=== PATIENT | female | born 2000 | race Hispanic/Latino ===

== ENCOUNTER 2019-05-17 14:28 | Emergency (ER) | payer OTHER ==
[~2019-05-17] VITALS: Ht 170.2 cm; Wt 95.5 kg
[2019-05-17 15:20] LABS: BASO % 0.5 % (0.0-1.0); EOS # 0.1 10^3/uL (0.0-0.50); EOS % 1.6 % (0.0-3.0); HEMATOCRIT 37.4 % (36.0-47.0); HEMOGLOBIN 12.2 g/dl (12.0-15.5); LYMPH # 1.9 10^3/uL (1.5-6.5); LYMPH % 24.7 % (24.0-44.0); MEAN CORPUSCULAR HEMOGLOBIN 29.5 pg (27.0-33.0); MEAN CORPUSCULAR HGB CONC 32.6 g/dl (32.0-36.5); MEAN CORPUSCULAR VOLUME 90.6 fl (80.0-96.0); MONO # 0.6 10^3/uL (0.0-0.8); MONO % 8.1 % (0.0-5.0); NEUTROPHILS # 4.9 10^3/uL (1.8-7.7); PLATELET COUNT, AUTOMATED 279 10^3/uL (150-450); RED BLOOD COUNT 4.13 10^6/uL (4.00-5.40); WHITE BLOOD COUNT 7.5 10^3/uL (4.0-10.0)
[2019-05-17 16:15] LABS: BLOOD UREA NITROGEN 13 MG/DL (7-18); CARBON DIOXIDE LEVEL 27 MEQ/L (21-32); CHLORIDE LEVEL 106 MEQ/L (98-107); CREATININE FOR GFR 0.69 MG/DL (0.55-1.30); GLUCOSE, FASTING 85 MG/DL (70-100); HCG, SERUM QUANTITATIVE 7000 MIU/ML; POTASSIUM SERUM 4.3 MEQ/L (3.5-5.1); SODIUM LEVEL 138 MEQ/L (136-145)
[2019-05-17 18:00] VITALS: BP 120/72
--- NOTE | 2019-05-17 18:21 | REPVR ---
EXAM: US First Trimester, Transabdominal and US , Transvaginal EXAM DATE/TIME: 05/17/2019 5:01 PM CLINICAL HISTORY: 18 years old, female; complicated by abdominal or pelvic pain; Left lower quadrant; First trimester; Gestational age or lmp: 6w6d; ; Additional info: Llq/pelvic pain; 6 weeks TECHNIQUE: Imaging protocol: Real-time transabdominal obstetrical ultrasound of the maternal pelvis and a first trimester , less than 14 weeks 0 days, with image documentation. Transvaginal imaging was used for better evaluation of the fetus and adnexa. COMPARISON: No relevant prior studies available. FINDINGS: GESTATION: Gestation: A single intrauterine gestational sac is identified with yolk sac. No pole is identified at this time. The yolk sac measures 0.25 cm in diameter. The mean gestational sac diameter is 1.12 cm. Heart rate: N/A. Placenta: No subchorionic bleed visualized. Amniotic fluid: Amniotic fluid subjectively normal for gestational age. BIOMETRY: Estimated gestational age: The estimated gestational age is 5 weeks 3 days. Estimated due date: The estimated date of delivery of 01/04/2020. MATERNAL: Uterus: The uterus measures 9.6 x 4.0 x 4.8 cm. The uterus is anteverted. No uterine mass visualized. Cervix: Unremarkable, as visualized. Right adnexa: The right ovary measures 3.7 x 2.4 x 1.9 cm. Within the right ovary, there is a complex/hemorrhagic cyst versus a thick-walled corpus luteum cyst. This measures 2.8 x 2.4 x 1.9 cm. There is preservation of blood flow within the right ovary. Left adnexa: The left ovary measures 2.8 x 2.7 x 1.5 cm. Small follicles are visualized within the left ovary. There is preservation of blood flow within the left ovary. Intraperitoneal: No intraperitoneal free fluid. IMPRESSION: 1. A single intrauterine gestational sac is identified with yolk sac. No pole is identified at this time. 2. The estimated gestational age is 5 weeks 3 days. 3. Within the right ovary, there is a complex/hemorrhagic cyst versus a thick-walled corpus luteum cyst. This measures 2.8 x 2.4 x 1.9 cm. 4. Follow-up ultrasonography is recommended. Electronically signed by: Lars Kim On 05/17/2019 18:21:30 PM
== END 2019-05-17 18:01 | disposition home or self-care (01) ==
LOC: M ED 14:28
DX: O99.89 Other specified diseases and conditions complicating pregnancy, childbirth and the puerperium (principal); R10.2 Pelvic and perineal pain; Z3A.00 Weeks of gestation of pregnancy not specified; R93.41 Abnormal radiologic findings on diagnostic imaging of renal pelvis, ureter, or bladder

== ENCOUNTER 2019-12-26 14:21 | Outpatient (CLI) | payer OTHER ==
[~2019-12-26] VITALS: Ht 170.2 cm; Wt 109.9 kg
[2019-12-26 14:40] VITALS: BP 121/76
[2019-12-26] MEDS ORDERED: PRENTAB9 PO (14:41)
[2019-12-26] MEDS ORDERED: MAPA500T2 PO (14:41)
== END 2019-12-26 15:21 | disposition home or self-care (01) ==
LOC: M LDO 14:21
PROVIDERS: ATTEND Advanced Practice Midwife
DX: O47.1 False labor at or after 37 completed weeks of gestation (principal); Z3A.37 37 weeks gestation of pregnancy; O99.213 Obesity complicating pregnancy, third trimester; E66.9 Obesity, unspecified; O26.893 Other specified pregnancy related conditions, third trimester; R51 Headache; Z79.899 Other long term (current) drug therapy
CPT/HCPCS: 59025; G0378; G0463

== ENCOUNTER 2020-01-20 07:30 | Inpatient (IN) | payer OTHER ==
[~2020-01-20] VITALS: Ht 170.2 cm; Wt 110.9 kg
[2020-01-20] VITALS (11 sets, daily range): BP systolic 100–135; BP diastolic 55–81
[2020-01-20] MEDS: miSOPROStol 50 MCG 1/2 TAB (S0191) PO SCH ×2 (03:12→19:14)
[~2020-01-20 07:30] MED LIST: MAPA500T2 PO; PRENTAB9 PO
[2020-01-20 08:30] LABS: HEMATOCRIT 33.7 % (36.0-47.0); HEMOGLOBIN 11.1 g/dl (12.0-15.5); MEAN CORPUSCULAR HEMOGLOBIN 29.2 pg (27.0-33.0); MEAN CORPUSCULAR HGB CONC 32.9 g/dl (32.0-36.5); MEAN CORPUSCULAR VOLUME 88.7 fl (80.0-96.0); PLATELET COUNT, AUTOMATED 237 10^3/uL (150-450); WHITE BLOOD COUNT 6.8 10^3/uL (4.0-10.0)
[2020-01-20] MEDS: LR 1,000 ML IV SCH ×2 (10:30→18:30)
[2020-01-20] MEDS ORDERED: miSOPROStol 50 MCG 1/2 TAB (S0191) SL ONE (10:30)
[2020-01-20] MEDS ORDERED: LACTATED RINGER'S 1000 ML IV ONE (10:30)
--- NOTE | 2020-01-20 10:54 | HPE ---
DATE OF ADMISSION: 01/20/2020 This lady is a 19-year-old 1, para 0, last menstrual period (LMP) 03/30/2019, expected date of confinement (EDC) 01/13/2020, at 41 weeks of gestation for induction of labor. Risk factors is she is late post term, she has headaches and has a body mass index (BMI) of 32.9. Labs: O+. HIV negative. Hepatitis negative. RPR negative. Rubella immune. Varicella immune. Urine negative. Gonorrhea and chlamydia negative. 1-hour early glucose was 76. 1-hour GTT at 28 weeks was 77. GBS is negative. Blood pressure is 118/69, respirations are 18, pulse 82, temperature 98.2. Urine is 1.020, pH 5, +1 leukocyte esterase, trace of protein. Hemoglobin 11.1, hematocrit 33.7 and platelets are 237. On examination, no distress. Symphysis fundus height is 40, vertex, occiput anterior (OA), -3 station, 50% effaced, posterior and thick. Four quadrant bowel sounds are noted. She has a category one strip. Normocephalic, atraumatic. Neck dull range of motion. Pupils equal and reactive to light. Chest is clear bilaterally at bases. No wheezes or rhonchi. No CVA tenderness. Abdomen is soft. As mentioned, four quadrant bowel sounds. Scar is noted. She has no rashes, lesions or pruritus. No arthralgia or myalgia. She does have tattoos. No joint pains. No complaint of cough, wheeze, shortness of breath or dyspnea on exertion. No nausea, vomiting, diarrhea or constipation. No bruising. No bleeding. Neuro complete. No diabetic or cold issues. SU[employer] history unremarkable. Past history Unremarkable. No surgical history. Family history noncontributory. She does not smoke, drink abuse drugs. She is . No domestic violence. She has good support from her partner. We discussed the consent for vaginal delivery which is delivery of baby through the vagina with possible assistance of vacuum or forceps or devices if needed, for maternal or indications. Forceps or vacuum device that can assist with vaginal delivery when normal pushing efforts cannot achieve delivery on their own or when delivery is needed in an emergency for baby's well-being. Medications may be required to induce or augment labor in order achieve vaginal delivery. An episiotomy may be required to help the baby deliver vaginally. May also require repairs for lacerations or tears of the vagina or vulva caused by delivery. Emergencies can arise and require emergency section. Your provider will discuss them with you, there may be not time enough to sign a consent form. section is delivery through the abdomen. In some situations, may be safer to mom and baby than continuing labor and only performed when clinically indicated. Risk of vaginal delivery includes, but are not limited to bleeding, infection, injury to vagina or pelvic structures, injury to baby, damage to the uterus, reaction to anesthesia, uterine rupture, risk of hysterectomy for life-threatening bleeding situations and . Medications used to induce or augment may increase risk of delivery, possible or hysterectomy, or bleeding. Also risk of infection, uterine tachysystole or uterine rupture, or heart rate abnormalities. This may generate and require need for emergency section. Possibility of hemorrhage is elevated. Additional risks of use of forceps or vacuum may include increased risk of perineal or vaginal lacerations, risk of urinary or bowel incontinence, increased risk of injury to baby with bruising scratches, hematomas on the head or intracranial bleed. The patient verbalized understanding as did her . Our plan is to hydrate her, use misoprostol 50 mg sublingual, reevaluate in 4 hours, and epidural if needed. The patient says she has scoliosis. This will be discussed with anesthesia. All questions were answered. 40-minute discussion.
[2020-01-20] MEDS ORDERED: miSOPROStol 25 MCG 1/4 TAB (S0191) As Ordered ONE (14:40)
[2020-01-20] MEDS ORDERED: miSOPROStol 50 MCG 1/2 TAB (S0191) PO SCH (14:45)
[2020-01-20] MEDS ORDERED: miSOPROStol 25 MCG 1/4 TAB (S0191) PO ONE (14:45)
--- NOTE | 2020-01-20 19:21 | IPN ---
DATE: 01/20/2020 This lady is a 1, para 0 at 40 and 1 weeks of gestation, admitted for induction of labor. She originally had a Cytotec 50 mg sublingually, which gave her contractions about 6 to 8 minutes, moderate in intensity. They did peter out. She had another dose of 25 mg orally and on present examination, she is found to be anterior, 2 cm, 70% effaced and -3 station, which is an improvement from her previous one. We anticipate that within the next 4 hours we should be able to initiate a Rothman bulb and Pitocin on this lady. Presently, her blood pressure has not been reevaluated on the updated census, however, evaluating her monitor strip, she is afebrile, respirations are 18, pulse is 72 and temperature is 98.2. Her blood pressure is 120/70. Our plan of management is to give her another lot of 50 of misoprostol, after which anticipation of using a Rothman bulb catheter and Pitocin will be entertained. The patient expressed understanding of plan of care.
[2020-01-21] VITALS (55 sets, daily range): BP systolic 102–177; BP diastolic 56–101
[2020-01-21] MEDS: LR 1,000 ML IV SCH ×4 (02:30→18:30)
[2020-01-21] MEDS: miSOPROStol 50 MCG 1/2 TAB (S0191) PO SCH ×6 (03:12→23:30)
[2020-01-21] MEDS ORDERED: OXYTOCIN DRIP 30 UNITS in IV 1 EA IV SCH (08:00)
[2020-01-21] MEDS ORDERED: OXYTOCIN 30 UNITS IN 0.9% NaCl 500ML IV BAG (J2590) As Ordered ONE (08:04)
[2020-01-21] MEDS ORDERED: PROMETHAZINE INJ 25 MG/ML VIAL (J2550) IV ONE (08:15)
[2020-01-21] MEDS ORDERED: BUTORPHANOL 2 MG/ML INJ (J0595) IV ONE (08:15)
[2020-01-21] MEDS ORDERED: FENTANYL 2MCG/ML ROPIVACAINE 0.2% IN 0.9% NACL 100ML IVBAG As Ordered ONE ×2 (11:44→20:30)
[2020-01-21] MEDS ORDERED: EPIDURAL/PCA KEYS XX PRN (12:00)
[2020-01-21] MEDS ORDERED: EPIDURAL COMMENT XX SCH (12:00)
[2020-01-21] MEDS ORDERED: LACTATED RINGER'S 1000 ML IV PRN (12:00)
[2020-01-21] MEDS ORDERED: REFRIGERATOR IV KEYS XX PRN (12:00)
[2020-01-21] MEDS ORDERED: NALOXONE INJ 0.4 MG/1 ML VIAL (J2310) IV PRN (12:00)
[2020-01-21] MEDS ORDERED: ePHEDrine SULFATE 25 MG/5 ML(5MG/ML) SYRINGE IV PRN (12:00)
[2020-01-21] MEDS ORDERED: ONDANSETRON 4MG/2ML VIAL (J2405) IV PRN (12:00)
[2020-01-21] MEDS: FENTANYL/ROPIVACAINE/NACL BAG 100 ML EPIDURAL SCH ×2 (12:00→22:00)
[2020-01-21] MEDS ORDERED: diphenhydrAMINE 50MG/ML VIAL (J1200) IV PRN (12:00)
--- NOTE | 2020-01-21 12:53 | IPN ---
DATE: 01/21/2020 This lady is a 19-year-old 1, LMP 03/30/2019, EDC 01/13/2020, admitted 40 and 1 weeks of gestation for induction of labor. She had four lots of Cytotec. She presently is having contractions every 2-6 minutes, moderate intensity. No ruptured membranes or bleeding. Category one strip, afebrile and normal blood pressure and pulse. Pelvic examination: The cervix is anterior, 3 cm, almost stretches to 4, 90% effaced at -3 station. ARM was done draining clear liquid. Moderate intensity. Our plan of care is to augment with Pitocin if necessary, and the patient is requesting at the present time IV medication for pain as opposed to an epidural, which has been ordered. Safe to proceed.
[2020-01-22] VITALS (7 sets, daily range): BP systolic 120–162; BP diastolic 71–88
[2020-01-22 01:30] LABS: CORD GAS ABE A -8.6; CORD GAS ABE V -7.8; CORD GAS HCO3 A 20.8 MEQ/L; CORD GAS O2 SAT A 38.3 %; CORD GAS O2 SAT V 66.2 %; CORD GAS PCO2 A 59.2 mmHg; CORD GAS PCO2 V 37.6 mmHg; CORD GAS PH A 7.164 UNITS; CORD GAS PH V 7.297 UNITS; CORD GAS PO2 A 22.6 mmHg; CORD GAS PO2 V 30.4 mmHg; CORD GAS SBC A 16.3 MEQ/L; CORD GAS SBC V 17.6 MEQ/L; CORD GAS TCO2 A 22.6 MEQ/L; CORD GAS TCO2 V 19.1 MEQ/L
[2020-01-22] MEDS ORDERED: ANUSOL HC CREAM 30GM TOP PRN (02:00)
[2020-01-22] MEDS ORDERED: MOM 30ML SUSPENSION UDC PO PRN (02:00)
[2020-01-22] MEDS ORDERED: MEASLES,MUMPS,RUBELLA VACCINE INJ (MMR-II) (90707) SC SCH (02:00)
[2020-01-22] MEDS ORDERED: OXYTOCIN INJ 10 UNITS/ML VIAL (J2590) IV ONE (02:00)
[2020-01-22] MEDS ORDERED: RHOGAM 300 MCG (1500 IU) INJ (J2790) IM SCH (02:00)
[2020-01-22] MEDS ORDERED: OXYTOCIN DRIP 30 UNITS in IV 1 EA IV ONE (02:00)
[2020-01-22] MEDS ORDERED: DIBUCAINE 1% OINTMENT 30GM TOP PRN (02:00)
[2020-01-22] MEDS ORDERED: METHYLERGONOVINE MALEATE 0.2 MG TAB PO PRN (02:00)
[2020-01-22] MEDS ORDERED: DOCUSATE SODIUM 100 MG CAP PO PRN (02:00)
[2020-01-22] MEDS ORDERED: OXYTOCIN INJ 10 UNITS/ML VIAL (J2590) As Ordered ONE (02:12)
[2020-01-22] MEDS: ACETAMINOPHEN 500 MG TAB PO PRN (03:17)
--- NOTE | 2020-01-22 06:33 | DN ---
DATE OF DELIVERY: 01/22/2020 19-year-old 1, para 0 admitted in 41 weeks of gestation for induction of labor. After multiple doses of Cytotec eventually had some contractions, did an ARM draining clear liqua, had a long prodromal second stage, but eventually at full dilatation delivered over an intact perineum a live male weighing 6 pounds 9 ounces, 2970 grams, scores of eight and eight at 1 and 5 minutes respectively. Arterial pH 7.16, base excess -8.6, venous pH 7.29, base excess -7.8. The baby had terminal meconium at delivery. Placenta delivered spontaneously thereafter. Three-vessels in the cord. Membranes and tissues intact. There were multiple calcifications in the placenta. On evaluation she had a first-degree tear of the vaginal wall. No evidence of perineal trauma. The lateral, anterior and posterior wan were intact. The sphincter was tight. The vaginal tear was repaired with a #2-0 Vicryl on a J339. Uterus contracted well down under Pitocin. The patient and baby tolerating procedure well.
[2020-01-22] MEDS: PRENATAL VITAMINS CHEWABLE TABLET PO SCH (09:00)
[2020-01-22] MEDS: ACETAMINOPHEN TAB 650MG DOSE (2X325MG) PO PRN (12:46)
[2020-01-22] MEDS: NAPROXEN 250 MG TAB PO SCH ×2 (16:20→20:19)
[2020-01-23] MEDS: ACETAMINOPHEN TAB 650MG DOSE (2X325MG) PO PRN (01:07)
[2020-01-23 06:00] VITALS: BP_SYST 109; BP_SYST 123; BP_DIAS 63; BP_DIAS 74
[2020-01-23 07:44] LABS: HEMATOCRIT 30.9 % (36.0-47.0); MEAN CORPUSCULAR HEMOGLOBIN 29.2 pg (27.0-33.0); MEAN CORPUSCULAR HGB CONC 32.4 g/dl (32.0-36.5); MEAN CORPUSCULAR VOLUME 90.1 fl (80.0-96.0); PLATELET COUNT, AUTOMATED 202 10^3/uL (150-450); RED BLOOD COUNT 3.43 10^6/uL (4.00-5.40); WHITE BLOOD COUNT 9.9 10^3/uL (4.0-10.0)
[2020-01-23] MEDS: NAPROXEN 250 MG TAB PO SCH ×2 (09:00→21:11)
[2020-01-23] MEDS: PRENATAL VITAMINS CHEWABLE TABLET PO SCH (09:00)
--- NOTE | 2020-01-23 09:59 | IPNPDOC ---
Progress Note Date of Service: Jan 23, 2020 Day#: 1 Progress Note PPD 1 SUBJECT: Tab is a 19yo [id number] s/p uncomplicated at 41wk after undergoing IOL for LTG, having a 1mll and repair, doing well day # 1. She has been ambulating, voiding spontaneously without issue and tolerating regular diet. Breast and bottle feeding without issue. Reports lochia is like a normal period. Patient is ambulating well. No f/c/n/v/CP/SOB. OBJECTIVE: VITAL SIGNS: Within normal limits, afebrile. Alert and oriented times three. Abdomen: Fundus firm at U-2. Soft, NTTP. Extremities: no pain with palpation of calves, trace pedal edema ASSESSMENT: Tab is a 19yo [id number] s/p uncomplicated at 41wk after undergoing IOL for LTG, having a 1mll and repair, doing well day # 1. Vitals within normal limits, afebrile, hemodynamically stable with no evidence of infection. PLAN: 1. Routine PP care 2. Tylenol and Motrin for pain. 3. Encourage breast feeding and ambulation. 4. Regular diet 5. Baby may need to stay for bili light, so anticipate discharge tomorrow. If baby ok to discharge, mom can go home today, too. Dr. Zayda Kennedy MD VS, I&O, 24H, Fishbone Vital Signs/I&O Vital Signs Date Time Temp Pulse Resp B/P (MAP) Pulse Ox O2 Delivery O2 Flow Rate FiO2 01/23/20 06:00 97.5 76 16 109/74 (86) 98 Room Air Laboratory Data 24H LABS Laboratory Tests 2 01/23/20 07:29: Nucleated Red Blood Cells % (auto) 0.0 CBC/BMP Laboratory Tests 01/23/20 07:29 Zayda Kennedy MD Jan 23, 2020 09:59
--- NOTE | 2020-01-23 11:49 | IPN ---
DATE: 01/23/2020 This patient requested circumcision of her male after discussing the risks and benefits of circumcision, the medical and nonmedical indications, the penile block and aftercare. Expressed understanding of penile block, aftercare and bleeding, signed the consent form. All questions were answered. 20 minute discussion. We await the clearance by the bankruptcy processor.
[2020-01-23] MEDS ORDERED: DIBU10OI TOP (12:25)
[2020-01-23] MEDS ORDERED: DOCU100C16 PO (12:25)
[2020-01-23] MEDS ORDERED: PROC1CRE5 TOP (12:25)
[2020-01-23] MEDS: ACETAMINOPHEN 500 MG TAB PO PRN (17:24)
[2020-01-23 18:00] VITALS: BP 116/70
[2020-01-24 01:27] VITALS: BP 135/92
[2020-01-24] MEDS: ACETAMINOPHEN TAB 650MG DOSE (2X325MG) PO PRN (05:21)
[2020-01-24 06:00] VITALS: BP 142/87
--- NOTE | 2020-01-24 07:46 | DS.PDOC ---
Discharge Summary General Date of Admission Jan 20, 2020 at 07:30 Date of Discharge 01/24/2020 Discharge Summary PROCEDURES PERFORMED DURING STAY: None. ADMITTING DIAGNOSES: 1. Postdates DISCHARGE DIAGNOSES: 1. Postdates COMPLICATIONS/CHIEF COMPLAINT: Postdates for IOL. HISTORY OF PRESENT ILLNESS: see H&P HOSPITAL COURSE: Patient was admitted for induction of labor and had an uncomplicated . Bleeding similar to menses. Tolerating diet. Passing flatus. Able to ambulate. Urinating without difficulty. DISCHARGE MEDICATIONS: Please see below. ALLERGIES: Please see below. PHYSICAL EXAMINATION ON DISCHARGE: VITAL SIGNS: Please see below. GENERAL: No acute distress HEENT: Mucous membranes moist BREAST: Nontender, no erythema CARDIOVASCULAR EXAMINATION: Regular rate and rythm RESPIRATORY EXAMINATION: Bilaterally clear ABDOMINAL EXAMINATION: Soft, appropriate tenderness, nondistended, fundus -2 EXTREMITIES: no edema, nontender LABORATORY DATA: Please see below. IMAGING: none PROGNOSIS: Good ACTIVITY: Pelvic rest. DIET: Regular DISCHARGE PLAN: Home DISPOSITION: Good. DISCHARGE INSTRUCTIONS: 1. See attached. ITEMS TO FOLLOWUP ON ON OUTPATIENT: 1. 6wks in clinic. DISCHARGE CONDITION: Stable. TIME SPENT ON DISCHARGE: Greater than 10 minutes. Vital Signs/I&Os Vital Signs Date Time Temp Pulse Resp B/P (MAP) Pulse Ox O2 Delivery O2 Flow Rate FiO2 01/23/20 06:00 97.5 76 16 109/74 (86) 98 Room Air Laboratory Data Labs 24H Laboratory Tests 2 01/23/20 07:29: Nucleated Red Blood Cells % (auto) 0.0 CBC/BMP Laboratory Tests 01/23/20 07:29 Discharge Medications Scheduled PRN Acetaminophen (Mapap) 500 Mg Tablet, 1,000 MG PO Q6HP PRN for PAIN, (Reported) Dibucaine (Dibucaine) 28 Gm Oint...g., 0 DOSE TOP Q4HP PRN for PAIN Docusate Sodium (Docusate Sodium) 100 Mg Capsule, 100 MG PO QHSP PRN for CONSTIPATION Hydrocortisone (Proctozone-Hc) 30 Gm Crm.pe.devi, 0 DOSE TOP Q4HP PRN for DISCOMFORT Allergies Coded Allergies: No Known Allergies (Unverified , 05/17/19) Indira Yañez MD Jan 23, 2020 12:30
--- NOTE | 2020-01-24 07:46 | IPNPDOC ---
Progress Note Date of Service: Jan 24, 2020 Day#: 2 Progress Note SUBJECT: Patient is a 19-year-old 1 now Para 1 status post uncomplicated spontaneous vaginal delivery, doing well day # 2. She has been ambulating, voiding spontaneously without issue and tolerating regular diet. Breast feeding without issue. Reports lochia is like a normal period. Patient is ambulating well. Reports some cramping with . Otherwise no pain. OBJECTIVE: VITAL SIGNS: Within normal limits, afebrile. GENERAL: No acute distress HEENT: Mucous membranes are moist BREAST: Nontender, no erythema CARDIOVASCULAR: RRR RESPIRATORY: Bilaterally clear ABDOMINAL EXAMINATION: Soft, appropriate tenderness, nondistended, fundus -2 PERINEUM: Intact, minimal lochia EXTREMITIES: no edema, nontender ASSESSMENT: Patient is a 19-year-old 1 now Para 1 status post uncomplicated spontaneous vaginal delivery, doing well day # 2. Vitals within normal limits, afebrile, hemodynamically stable with no evidence of infection. PLAN: 1. Discharge to home today. 2. Tylenol for pain. 3. Encourage breast feeding and ambulation. 4. Routine PP visit in 6 weeks in clinic. 6. Discussed return precautions at length. VS, I&O, 24H, Fishbone Vital Signs/I&O Vital Signs Date Time Temp Pulse Resp B/P (MAP) Pulse Ox O2 Delivery O2 Flow Rate FiO2 01/23/20 06:00 97.5 76 16 109/74 (86) 98 Room Air Laboratory Data 24H LABS Laboratory Tests 2 01/23/20 07:29: Nucleated Red Blood Cells % (auto) 0.0 CBC/BMP Laboratory Tests 01/23/20 07:29 Indira Yañez MD Jan 23, 2020 12:28
[2020-01-24] MEDS: PRENATAL VITAMINS CHEWABLE TABLET PO SCH (08:11)
[2020-01-24] MEDS: NAPROXEN 250 MG TAB PO SCH (08:11)
[2020-01-24 12:22] VITALS: BP_SYST 135; BP_DIAS 25; BP_DIAS 75
== END 2020-01-24 12:30 | disposition home or self-care (01) | DRG 807 ==
LOC: M LDI 07:30 → M OBS 01-22 11:55
PROVIDERS: ADMIT Obstetrics & Gynecology; ATTEND Obstetrics & Gynecology
PROC: 3E0P7GC Introduction of Other Therapeutic Substance into Female Reproductive, Via Natural or Artificial Opening (ICD-10-PCS; 2020-01-20)
PROC: 10907ZC Drainage of Amniotic Fluid, Therapeutic from Products of Conception, Via Natural or Artificial Opening (ICD-10-PCS; 2020-01-21)
PROC: 10E0XZZ Delivery of Products of Conception, External Approach (ICD-10-PCS; principal; 2020-01-22)
PROC: 0HQ9XZZ Repair Perineum Skin, External Approach (ICD-10-PCS; 2020-01-22)
DX: O48.0 Post-term pregnancy (principal); Z37.0 Single live birth; Z3A.41 41 weeks gestation of pregnancy; O70.0 First degree perineal laceration during delivery

== ENCOUNTER → 2025-07-21 | Outpatient (RCR) ==
[~2025-07-21] MED LIST changes: +DIBU28OI2 TOP; +DOCU100C16 PO; +PROC1CRE5 TOP
== END ==
LOC: M EMPSKH 07-03 14:59
PROVIDERS: ATTEND Family Medicine
DX: Z20.828 Contact with and (suspected) exposure to other viral communicable diseases (principal)